=== PATIENT | male | born 1960 | race Caucasian/White ===

== ENCOUNTER 2025-03-12 18:33 | Emergency (ER) | payer BC, SELFPAY ==
[2025-03-12 18:35] VITALS: BP 138/91; PULSE 76; TEMP 36.6; O2SAT 99; BMI 33.7
--- OUTSIDE RECORDS SUMMARY | 2025-03-12 19:26 | XMS_ITS | Encounter Summary ---
Author Organization [employer] [facility] [employer] Address [id number] [address] [place] [address] Care Team Providers Care Store Management Trainee Name Role Phone Juan Sigala MD Primary Care Provider [phone] Encounter Details Date Type Department Care Team (Late st Contact Info) Description 03/18/2021 Orders Only [facility] [address] [place] [address] Pilar Mcwillimas CMA Social History Tobacco Use Types Packs/Day Years Used Date Smoking Tobacco: Never Smokeless Tobacco: Never Alcohol Use Standard Drinks/Week Comments No 0 (1 standard drink = 0.6 oz pur e alcohol) Childcare Answer Date Recorded Childcare Unknown 11/02/2018 Employment Answer Date Recorded Employment Unknown 11/02/2018 Purpose - Life Answer Date Recorded Purpose and direction in life Unknown Sex and Gender Information Value Date Recorded Sex Assigned at Not on file Legal Sex Male 12:03 PM EDT Gender Identity Not on file Sexual Orientation Not on file COVID-19 Exposure Response Date Recorded In the last month, have you been in contact with someone who was confirmed or suspected to have Coronavirus / COVID-19? No / Unsure 03/20/2021 9:24 AM EDT documented as of this encounter Plan of Treatment Not on file documented as of this encounter Visit Diagnoses Not on filedocumented in this encounter Care Teams Store Management Trainee Relationship Specialty Start Date End Date Juan Sigala MD PCP - General 09/29/16 documented as of this encounter
--- OUTSIDE RECORDS SUMMARY | 2025-03-12 19:26 | XMS_ITS | Encounter Summary ---
Author Organization [email or web address] [facility] [employer] Address [id number] [address] [place] [address] Care Team Providers Care Software Test Analyst Name Role Phone Juan Sigala MD Primary Care Provider [phone] Encounter Details Date Type Department Care Team (Late st Contact Info) Description 03/25/2021 Orders Only [facility] [address] [place] [address] Ref Prov, [place] [address] Social History Tobacco Use Types Packs/Day Years [...] on file documented as of this encounter Procedures Procedure Name Priority Date/Time Associated Diagnosis Comments CT CHEST W CONT Routine 02/26/2021 XR CHEST 1 VW Routine 02/26/2021 documented in this encounter Results * X-ray chest 1 view (02/26/2021) Anatomical Region Laterality Modality Body, Chest N/A Computed Radiogr aphy us Not In System Ref Prov IMG DIAGNOSTIC IMAGING OR DERABLES Final Result * CT chest with contrast (02/26/2021) Anatomical Region Laterality Modality Body, Lung, Chest, Body Covera N/A C omputed Tomography us Not In System Ref Prov IMG CT ORDERABLES Final R esult documented in this encounter Visit Diagnoses Not on filedocumented in this encounter Care Teams Software Test Analyst Relationship Specialty Start Date End Date Juan Sigala MD PCP - General 09/29/16 documented as of this encounter
--- OUTSIDE RECORDS SUMMARY | 2025-03-12 19:26 | XMS_ITS | Clinical Summary ---
Author Organization [facility] Healthcare Address [address] [place] [address] Care Team Providers Care Business Support Administrator Name Role Phone Unavailable Primary Care Provider Unavailamilcar e Social History Tobacco Use Types Packs/Day Years Used Date Smoking Tobacco: Never Assessed Sex and Gender Information Value Date Recorded Sex Assigned at Not on file Legal Sex Male 7:41 PM EDT Gender Identity Not on file Sexual Orientation Not on file Plan of Treatment Not on file Insurance [employer]
--- NOTE | 2025-03-12 19:44 | CT_ITS ---
The [address] [address] Patient Name: HUSSAIN ZAVALA MRN: [id number] date: 1960 Sex: M Assigned Patient Location: ER Current Patient Location: ER Accession/Order Number: [id number] Exam Date: 03/12/2025 20:25 Report Date: 03/12/2025 21:08 At the request of: BLANCA CALLE MD Procedure: CT abdomen pelvis w con CT ABDOMEN AND PELVIS WITH INTRAVENOUS CONTRAST: CLINICAL HISTORY: Possible right incarcerated hernia COMPARISON: None TECHNIQUE: Spiral images were obtained through the abdomen and pelvis following the administration of intravenous contrast. This CT exam was performed using one or more following dose reduction techniques: Automated exposure control, adjustment of the mA and/or kV according to patient size, or use of iterative reconstruction technique. FINDINGS: Lung Bases: [Hypoventilatory changes.] Organs:Fatty liver. Scattered hepatic hypodensities likely cysts too small for accurate characterization. Gallbladder mildly distended 4.8 cm, if there are right upper quadrant quadrant symptoms, consider ultrasound. Common bile duct measures 9 mm. Otherwise spleen, adrenals, kidneys, pancreas unremarkable. Right superior pole renal cyst 1.8 cm in size. No hydronephrosis. Subcentimeter left lower pole renal lesion noted..[ GI: Mild retained stool within colon. No bowel obstruction. Colonic diverticulosis involving the sigmoid colon. Pericolonic inflammatory changes involving the descending colon identified[. There is small right sided hernia containing a loop of bowel and fat. Pelvis:[Bladder grossly unremarkable. Prostate unremarkable.] Peritoneum/Retroperitoneum:No free air or fluid. [id number]-[id number] plaque involving the nonaneurysmal aorta.[No adenopathy. Abd wall/Bones:Levocurvature. Multilevel degenerative change.[ CT/CT abdomen pelvis w con IMPRESSION: Acute uncomplicated sigmoid colonic diverticulitis. Right inguinal hernia containing containing mesenteric fat. Right-sided questionable femoral hernia versus internal hernia containing small bowel loop Mildly distended gallbladder with slight prominence of the common bile duct. The right upper quadrant symptoms, consider ultrasound. Impression dictated by: Memo Khan M.D. 03/12/2025 9:08 PM Dictation Location: [employer] Electronically authenticated by: [id number] Y Date: 03/12/2025 21:08
--- NOTE | 2025-03-12 19:47 | ED_ITS ---
HPI HPI - General Adult General Chief complaint: Abdominal Pain Stated complaint: HERNIA, DIVERTICULITUS Time Seen by Provider: 03/12/25 19:40 Source: patient Mode of arrival: Wheelchair Limitations: no limitations History of Present Illness HPI narrative: 64-year-old male presents for abdominal pain. He is complaining of pain in the right inguinal area where he has a known hernia. He has had it for years and he had his surgeon look at it as COVID was starting and he never had surgery on it. Since last night he has been having increasing pain and he is worried about strangulation. He states it is always bulging out. The pain is severe and continuous. Related Data Previous Rx's ?Medication ?Instructions ?Recorded ciprofloxacin HCl 500 mg tablet 500 mg PO Q12H #20 tab s 03/12/25 (Cipro) hydrocodone 5 mg-acetaminophen 325 1 tab PO Q6H PRN pa in 5 days #20 10/20/25 mg tablet tabs metronidazole 500 mg tablet 500 mg PO TID #30 tabs ondansetron 4 mg disintegrating 4 mg PO Q6H PRN nausea and 03/12/25 tablet vomiting #20 tabs Allergies Allergy/AdvReac Type Severity Reaction Status Date / Time No Known Drug Allergies Allergy Verified 03/12/25 18:39 Opioid HPI Opioid Management Most Recent Opioid Data: Last Pain Scale 10 Today, 20:50 Last JUL Pain Assessment Today, 19:57 Review of Systems ROS Narrative A ten point review of systems is negative except as noted above. PFSH PFSH Social History Little interest or pleasure in doing things: not at all Feeling down, depressed, or hopeless: not at all Exam Narrative Exam Narrative: Nurses note and vital signs reviewed General:The patient appears well and in no apparent distress.Patient is resting comfortably on cart. Skin:Warm, dry, no pallor noted.There is no rash noted. Head:Normocephalic, atraumatic Eye: Normal conjunctiva, no drainage Ears, Nose, Mouth, and Throat: oral mucosa is moist. Nares patent. Cardiovascular:Regular Rate and Rhythm Respiratory:Patient is in no distress, no accessory muscle use, lungs are clear to auscultation, no wheezing, rales or rhonchi Back:non-tender GI: Abdomen is soft and nondistended. In his right inguinal area he has a bulging mass which is not easily reducible. Musculoskeletal: The patient has no evidence of calf tenderness, no pitting edema, symmetrical pulses noted bilaterally Neurological:A&O, normal speech Psychiatric:Cooperative Constitutional Vital Signs, click to edit/add: Last Vital Signs Temp 97.9 F 03/12/25 18:35 Pulse 76 03/12/25 18:35 Resp 18 03/12/25 18:35 BP 138/91 03/12/25 18:35 Pulse Ox 99 03/12/25 18:35 Course Vital Signs Vital signs: Vital Signs Temperature 97.9 F 03/12/25 18:35 Pulse Rate 76 03/12/25 18:35 Respiratory Rate 18 03/12/25 18:35 Blood Pressure 138/91 03/12/25 18:35 Pulse Oximetry 99 03/12/25 18:35 Temperature 97.9 F 03/12/25 18:35 Pulse Rate 76 03/12/25 18:35 Respiratory Rate 18 03/12/25 18:35 Blood Pressure 138/91 03/12/25 18:35 Pulse Oximetry 99 03/12/25 18:35 Medical Decision Making MDM Narrative Medical decision making narrative: The patient is found to have acute diverticulitis and was given IV Cipro and Flagyl. He is discharged home on Cipro and Flagyl as well as Tiffin and Zofran. The patient has right inguinal hernia but there is no loop of bowel in it. Femoral hernia also identified and he is referred to general surgery for follow- up. Treatment diagnosis and follow-up were discussed with the patient. There is no incarcerated hernia or strangulated hernia. He has no right upper quadrant pain or tenderness on palpation. I do not suspect gallbladder disease at this point. Differential Diagnosis Differential Diagnosis: Diverticulitis, hernia, incarcerated hernia, strangulated hernia Lab Data Lab results reviewed: Yes I reviewed the patient's lab results Labs: Lab Results 03/12/25 03/12/25 Range/Units 19:15 19:57 WBC 9.8 (4.0-11.0) 10^3/uL RBC 5.55 (4.70-6.10) 10^6/uL Hgb 15.6 (14.0-18.0) g/dL Hct 47.7 (42.0-54.0) % MCV 85.9 (80.0-94.0) fL MCH 28.1 (25.9-34.0) pg MCHC 32.7 (29.9-35.2) g/dL RDW 13.2 (11.0-15.0) % Plt Count 232 (150-450) 10^3/uL MPV 9.5 (9.5-13.5) fL Neut % (Auto) 66.8 (43.0-75.0) % Lymph % (Auto) 19.5 L (20.5-60.0) % [place] % (Auto) 9.0 (1.7-12.0) % Eos % (Auto) 3.9 (0.9-7.0) % Baso % (Auto) 0.6 (0.2-2.0) % Neut # (Auto) 6.6 H (1.4-6.5) 10^3/uL Lymph # (Auto) 1.9 (1.2-3.8) 10^3/uL [place] # (Auto) 0.9 H (0.3-0.8) 10^3/uL Eos # (Auto) 0.4 (0.0-0.7) 10^3/uL Baso # (Auto) 0.1 (0.0-0.1) 10^3/uL Abs Immat Gran (auto) 0.02 (0.00-0.03) 10^3/uL Imm/Tot Granulo (auto) 0.2 (0.0-0.5) % Sodium 140 (136-145) mmol/L Potassium 4.6 (3.5-5.1) mmol/L Chloride 105 (98-107) mmol/L Carbon Dioxide 27.1 (21.0-32.0) mmol/L Anion Gap 12.5 BUN 12.0 (7.0-18.0) mg/dL Creatinine 0.98 (0.70-1.30) mg/dL Est GFR ( Amer) >60 (>=60 mL/min/1.73m^2) Est GFR (Non-Af Amer) >60 (>=60 mL/min/1.73m^2) BUN/Creatinine Ratio 12.2 Glucose 99 (74-106) mg/dL Lactate 2.2 H* (0.4-2.0) mmol/L Calcium 9.0 (8.5-10.1) mg/dL Imaging Data CT scan - abdomen: Radiologist's impression: ITS Impressions Abdomen/Pelvis CT 03/12/25 19:44 IMPRESSION: Acute uncomplicated sigmoid colonic diverticulitis. Right inguinal hernia containing containing mesenteric fat. Right-sided questionable femoral hernia versus internal hernia containing small bowel loop Mildly distended gallbladder with slight prominence of the common bile duct. The right upper quadrant symptoms, consider ultrasound. Impression dictated by: Memo Khan M.D. 03/12/2025 9:08 PM Dictation Location: [employer] Electronically authenticated by: [id number] Y Date: 03/12/2025 21:08 Discharge Plan Discharge Chief Complaint: Abdominal Pain Clinical Impression: Diverticulitis Patient Disposition: Home, Self-Care Time of Disposition Decision: 22:13 Condition: Good Mode of Transportation: Private Vehicle Prescriptions / Home Meds: New hydrocodone-acetaminophen 5-325 mg tablet 1 tab PO Q6H PRN (Reason: pain) 5 Days Qty: 20 0RF metronidazole 500 mg tablet 500 mg PO TID Qty: 30 0RF ciprofloxacin HCl [Cipro] 500 mg tablet 500 mg PO Q12H Qty: 20 0RF ondansetron 4 mg tablet,disintegrating 4 mg PO Q6H PRN (Reason: nausea and vomiting) Qty: 20 0RF Print Language: Citizen Of [place] Instructions: Diverticulitis (ED) Referrals: CRISTINA ACEVES [Primary Care Provider] - 1 week James Merino MD [Physician, General Surgery] James Berrios MD [Physician, General Surgery]
[2025-03-12] MEDS: MORPHINE SULFATE 4 MG/ML VIAL IV ×2 (19:57→20:50)
[2025-03-12 20:00] LABS: Hematocrit 47.7 % (42.0-54.0); Hemoglobin 15.6 g/dL (14.0-18.0); Immature Granulocytes Abs Auto 0.02 10^3/uL (0.00-0.03); Immature Granulocytes Pct Auto 0.2 % (0.0-0.5); Lymphocytes Absolute Auto 1.9 10^3/uL (1.2-3.8); Mean Corpuscular HGB Conc 32.7 g/dL (29.9-35.2); Mean Corpuscular Hemoglobin 28.1 pg (25.9-34.0); Mean Corpuscular Volume 85.9 fL (80.0-94.0); Platelet Count 232 10^3/uL (150-450); Red Blood Count 5.55 10^6/uL (4.70-6.10); White Blood Count 9.8 10^3/uL (4.0-11.0)
[2025-03-12 20:12] LABS: Anion Gap 12.5; Blood Urea Nitrogen 12.0 mg/dL (7.0-18.0); Calcium 9.0 mg/dL (8.5-10.1); Carbon Dioxide 27.1 mmol/L (21.0-32.0); Chloride 105 mmol/L (98-107); Estimated GFR (African America >60 (>=60 mL/min/1.73m^2); Estimated GFR (Non-African Ame >60 (>=60 mL/min/1.73m^2); Glucose 99 mg/dL (74-106); Potassium 4.6 mmol/L (3.5-5.1); Sodium 140 mmol/L (136-145)
[2025-03-12 20:23] LABS: Lactate/Lactic Acid 2.2 mmol/L (0.4-2.0)
[2025-03-12] MEDS: CIPROFLOXACIN IN 5 % DEXTROSE 400 MG/200 ML PREMIX 200 MG IV (21:43)
[2025-03-12] MEDS: METRONIDAZOLE/SODIUM CHLORIDE 500 MG/100 ML PREMIX 100 MG IV (21:44)
[2025-03-12 23:29] VITALS: BP 134/82; PULSE 79; O2SAT 99
== END 2025-03-12 23:31 | disposition home or self-care (01) ==
PROVIDERS: Emergency Provider Emergency Medicine
DX: K57.32 Diverticulitis of large intestine without perforation or abscess without bleeding (principal); K40.90 Unilateral inguinal hernia, without obstruction or gangrene, not specified as recurrent; K41.90 Unilateral femoral hernia, without obstruction or gangrene, not specified as recurrent
CPT/HCPCS: 36415; 74177; 80048; 83605; 85025; 96365; 96366; 96368; 96375; 96376; 99285; J0744; J1836; J2270; J2405; Q9967